=== PATIENT | male | born 1995 | race Caucasian/White ===

== ENCOUNTER 2017-07-28 12:24 | Emergency (ER) | payer MEDICAID ==
[~2017-07-28] VITALS: Ht 177.8 cm; Wt 56.7 kg
[2017-07-28 12:39] VITALS: BP 89/60
--- NOTE | 2017-07-28 12:42 | NUR ---
PT AMBULATES TO BED 5
--- NOTE | 2017-07-28 12:44 | NUR ---
PT AMBULATES TO BED 5, REPORT GIVEN TO DIEGO TORIBIO
--- NOTE | 2017-07-28 12:56 | NUR ---
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 DENIES N/V/D; SKIN IS PINK/WARM/DRY; AAOX4 WITH EVEN AND STEADY GAIT; LUNGS CLEAR BL.PATIENT STATES PAIN OF 0/10 AT THIS TIME; VSS; PATIENT POSITIONED FOR COMFORT; HOB ELEVATED; BEDRAILS UP X2; BED DOWN. MARCUS MELENDEZ MADE AWARE OF PT STATUS. Addendum: 07/28/17 at 1257 by [email or web address] PT STATED PAIN WHEN LIFTING SOMETHING OR BENDING.
--- NOTE | 2017-07-28 13:55 | NUR ---
DR MODI EVALUATING AT BEDSIDE
[2017-07-28] MEDS ORDERED: KETOROLAC 60 MG/2 ML VIAL IM ONE (14:00)
[2017-07-28 14:25] VITALS: BP 101/61
== END 2017-07-28 14:25 | disposition home or self-care (01) ==
LOC: MED 12:24
DX: M54.5 Low back pain (principal)
CPT/HCPCS: 81002; 96372; 99283; J1885